=== PATIENT | male | born 1945 | race Caucasian/White ===

== ENCOUNTER → 2023-05-21 | Outpatient (CLI) | payer MEDICARE ==
--- NOTE | 2023-05-24 09:52 | PE ---
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 Images are reviewed on the computer in the coronal, axial, and sagittal planes. Reconstructed rotating images are created on independent workstation and review ed on the computer. A non-contrast CT is performed in conjunction with the PET scan. Glucose level 100 mg/dL CT DLP: mGycm, Automated exposure control for dose reduction was used. COMPARISON: CT None, PET/CT None, FINDINGS: Mediastinal SUV mean is . Hepatic parenchyma SUV mean is . SKULL BASE AND NECK: No suspicious radiotracer activity. CHEST, MEDIASTINUM, AND HILAR REGION: No suspicious radiotracer activity. ABDOMEN AND PELVIS: No suspicious radiotracer activity. MUSCULOSKELETAL STRUCTURES: No suspicious radiotracer activity. OTHER CT: IMPRESSION: No suspicious radiotracer activity. No priors were available. If a prior is made available, an addend um can be made to address providers area of concern.
--- NOTE | 2023-05-24 12:10 | PE ---
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 Images are reviewed on the computer in the coronal, axial, and sagittal planes. Reconstructed rotating images are created on independent workstation and reviewed on the computer. A non-contrast CT is performed in conjunction with the PET scan. Glucose level 104 mg/dL CT DLP: 756.31 mGycm, Automated exposure control for dose reduction was used. COMPARISON: CT 03/11/2023, PET/CT None, FINDINGS: Mediastinal SUV mean is 2.0. Hepatic parenchyma SUV mean is 2.5. SKULL BASE AND NECK: No suspicious radiotracer activity. CHEST, MEDIASTINUM, AND HILAR REGION: Nonenlarged lymph nodes throughout the mediastinum. * Right pulmonary hilum lymph nodes max SUV 4.4. * Subcarinal lymph node max series 3.9. * Left pulmonary hilum lymph nodes max SUV 4.4. * ABDOMEN AND PELVIS: No suspicious radiotracer activity. MUSCULOSKELETAL STRUCTURES: * No suspicious radiotracer activity. * Uptake along the sternotomy wires max SUV 4.9. Findings likely postsurgical. OTHER CT: Bilaterally aphakia. Arthrosis course of the carotid bifurcations. Large right and small left pleural effusions. Mitral valve annular calcifications. Sternotomy changes with CABG repair changes. Severe coronary arteries disease. Mild gynecomastia changes. Gallbladder wall calcifications. Fat-containing umbilical hernia. The prostate gland measures up to 5.6 mm in transverse dimension. There is bladder wall thickening. Few scattered colonic diverticula present. Right thyroid gland nodule measuring up to 13 mm. IMPRESSION: 1. No suspicious uptake. No lymphadenopathy. 2. There is a large right and small left pleural effusions with bilateral hilar mildly FDG avid lymph nodes favored to be reactive. 3. 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 4. Prostatomegaly with circumferential bladder wall thickening. Correlate for chronic bladder obstruction. 5. Right thyroid gland nodule which can be further evaluated with thyroid ultrasound if clinically warranted. MTDD
== END | disposition home or self-care (01) ==
LOC: RADPETMAIN 07:43
PROVIDERS: ATTEND Internal Medicine Critical Care Medicine
DX: C92.10 Chronic myeloid leukemia, BCR/ABL-positive, not having achieved remission (principal); J90 Pleural effusion, not elsewhere classified; N40.0 Benign prostatic hyperplasia without lower urinary tract symptoms; N32.89 Other specified disorders of bladder; E04.1 Nontoxic single thyroid nodule; K82.8 Other specified diseases of gallbladder
CPT/HCPCS: 78815; A9552